=== PATIENT | female | born 1960 | race Caucasian/White ===

== ENCOUNTER 2020-07-09 12:24 | Emergency (ER) | payer BC, MEDICAID ==
[~2020-07-09] VITALS: Ht 162.6 cm; Wt 99.8 kg
--- NOTE | 2020-07-09 13:55 | NUR ---
Patient discharged to home in stable condition. Written and verbal after care instructions given. Patient verbalizes understanding of instructions. Stressed follow up or return to ER for worsening s/s.
[2020-07-09 13:56] VITALS: BP 158/69
== END 2020-07-09 13:57 | disposition home or self-care (01) ==
LOC: ER 12:24
DX: J18.9 Pneumonia, unspecified organism (principal); Z20.828 Contact with and (suspected) exposure to other viral communicable diseases
CPT/HCPCS: 71045; A4663